=== PATIENT | female | born 1985 | race African-American/Black ===

== ENCOUNTER → 2016-10-14 | Outpatient (CLI) | payer OTHER ==
--- NOTE | 2016-10-19 16:06 | PATHOLOGY ---
PATHOLOGY REPORT * * * * * * * * FINAL DIAGNOSIS: Skin, left hand, top: - Superficial and deep perivascular dermatitis, spongiotic. (see comment) COMMENT: Additional clinical history obtained from the office on October 15, 2016 is that this patient has macular lesions on the palmar aspect of her hands and maculopapular lesions on the back of her hands to her wrists. The patient was started on a Medrol dose pack which decreased the size and appearance of the lesions on the palms but not on the backs of the hands. The rash did not initially itch but did start itching after a couple of days. Her symptoms have only mildly improved. Sections show a spongiotic dermatitis. The histologic differential diagnosis would include an eczematous dermatitis such as an allergic contact dermatitis versus dyshidrotic eczema versus an id reaction. Plasma cells are not seen ruling out secondary syphilis. A dermatophyte was also ruled out with a negative PAS-DF. Please correlate clinically. (SAS:mgr; d/t: 10/19/16) Special Stain: PAS-DF: negative REPORT ELECTRONICALLY SIGNED BY: Jaimie Machuca M.D., Dermatopathologist DATE/TIME: 10/19/2016 16:05 * * * * * * * * MICROSCOPIC DESCRIPTION: Multiple levels and additional requested deeper levels of a small punch biopsy of skin shows overlying hyperkeratosis compatible with the biopsy location. The epidermis is irregularly acanthotic and spongiotic with exocytosis of benign lymphocytes and Langerhans cells. Occasional dyskeratotic keratinocytes are seen. There is a superficial perivascular lymphohistiocytic inflammatory cell infiltrate. A PAS-D stain for fungus was performed and is negative. GROSS PATHOLOGY: Received in formalin labeled "Lizbeth Leak, left hand," is a punch biopsy measuring 0.2 x 0.2 x 0.1 cm in maximum dimensions. The epidermal surface is light murphy and grossly unremarkable. The margin is inked, and the specimen is entirely submitted in cassette A1. (CAA; 10/14/2016) INITIAL CPT CODE(S): A; 10474, 24393 Professional services performed by [facility], [address] [place] [id number]. Technical services performed by [facility] at [address] [place] [id number]. SPECIMEN(S) RECEIVED: A.Biopsy left hand, top CLINICAL HISTORY: Lesion left hand, R21 PATIENT: LIZBETH DANIELSON /AGE: 701/21/1985 (Age: 31) PATIENT #: [id number] ALT CASE #: SPECIMEN COLLECTION DATE: 10/13/2016 SPECIMEN RECEIVED DATE: 10/14/2016 [facility] - [id number] [place] [address] - PHONE: [phone] * * * END OF REPORT * * *
== END | disposition home or self-care (01) ==
LOC: SPEC 13:25
PROVIDERS: ATTEND Family Medicine
DX: R21 Rash and other nonspecific skin eruption (principal)
CPT/HCPCS: 88305; 88312

== ENCOUNTER → 2018-04-14 | Outpatient (CLI) | payer BC ==
--- NOTE | 2018-04-14 08:59 | RAD ---
Pelvic ultrasound, 04/14/2018: HISTORY: Uterine enlargement Transabdominal and transvaginal scans were obtained. The uterus measures 8.4 x 4.2 x 5.6 cm. The central uterine echo complex measures 6 mm. No uterine mass is evident. The left ovary measures 3.2 x 1.9 x 1.8 cm. It contains small follicular cysts. Blood flow is present in the left ovary. The right ovary was not visualized. No adnexal mass is seen. A trace amount of free fluid is present in the cul-de-sac. This amount of fluid can be on a physiologic basis. IMPRESSION: 1. No uterine abnormality is detected. 2. Nonvisualization of the right ovary. 3. Trace amount of free fluid in the pelvis. Electronically signed by: Emmanuel Mir MD (04/14/2018 8:55 AM) [facility]
== END | disposition home or self-care (01) ==
LOC: US 06:46
PROVIDERS: ATTEND Family Medicine
DX: N85.2 Hypertrophy of uterus (principal)
CPT/HCPCS: 76830; 76856